=== PATIENT | female | born 1975 | race Caucasian/White ===

== ENCOUNTER 2023-02-03 17:58 | Emergency (ER) | payer OTHER, MEDICARE, SELFPAY ==
[2023-02-03 18:04] VITALS: BP 159/92; PULSE 101; RESP 20; TEMP 36.9; O2SAT 99; BMI 30.9
--- NOTE | 2023-02-03 18:42 | ED_ITS ---
HPI - General Adult General Time Seen by Provider: 18:43 Date Seen: 02/03/23 Chief complaint: Unspecified Complaint, Adult Stated complaint: MS/Rheumatoid arthritis flare up Time Seen by Provider: 02/03/23 18:35 Source: patient Mode of arrival: ambulatory Limitations: no limitations History of Present Illness HPI narrative: Kaylee is a 47-year-old female with rheumatoid arthritis, multiple sclerosis, migraines, obesity presents emerged department via private car and self with a rheumatoid arthritis flare. Patient used to be on rituximab for her MS and RA but due to her recent move from [place] to [place] she has not been taking this medication. She was also admitted recently at [facility] for sore blurry vision of the left eye, right leg paresthesias, neurology thought more related to pseudo flares with her MS an RA. No evidence of optic neuritis. MRI orbit did not show enhancement of the optic nerve. MRI brain did not show enhancement to suggest active demyelination intracranial especially infratentorial locations. MRI negative for any aneurysm or vascular malformation to explain her mydriasis. No evidence of acute angle glaucoma with IOP. Due to her right lower paresthesias, MR lumbar and thoracic spine was obtained she was not a surgical candidate after evaluated by [facility]. This was thought to be related to acute on chronic right leg weakness. She was given IV methyl prednisolone 1 g for 5 days. She was then discharged home. Patient was just seen on 01/23 at the [facility] for a migraine and left eye pupil enlargement. CTA head and neck were negative, labs reassuring she was treated as a migraine exacerbation. She is currently finished a Medrol Dosepak. Over the last few days she has had increased right lower extremity muscle spasms and pain, this is usually what occurs when she has a pseudo flare, she feels it is affecting her left side, she also gets burning in the skin of her upper lower extremities, like it is crawling. She denies any migraine at this time, she does get some intermittent blurry vision of that left eye which is not new, she has had a dilated left pupil with these flare ups. She has had some upper neck pain, bilateral paraspinal musculature that radiates to the left side of her head, no recent injury. She denies any chest pain or shortness of breath, no abdominal pain, she has not had any nausea or vomiting. Patient is able to ambulate, she denies any urinary bowel incontinence or retention, she denies any lower back pain. She is scheduled to see Neurology and [facility] mid February, she has just established care with a nurse practitioner Pavel Coats. Related Data Home Medications Medication Instructions Recorded Confirmed bupropion HCl PO 02/03/23 hydrochlorothiazide 25 mg tablet 25 mg PO DAILY 02/03/23 02/03/23 losartan 100 mg tablet (Cozaar) 100 mg PO DAILY 02/03/23 02/03/23 ondansetron HCl 4 mg tablet 4 mg feeding tube Q8-12H PRN 02/03/23 02/03/23 sertraline 02/03/23 Previous Rx's Medication Instructions Recorded Methylprednisone 1,000 mg PO .q24 5 days #5 caps 02/03/23 Allergies Allergy/AdvReac Type Severity Reaction Status Date / Time codeine Allergy Mild Verified 02/03/23 18:12 metoclopramide [From Reglan] Allergy Mild Anxiety Verified 02/03/23 18:12 penicilln Allergy Mild Abdominal Uncoded 02/03/23 18:12 Pain Review of Systems Status of ROS: Reports: 10 or more systems reviewed and unremarkable except as noted in History and below [facility] Social History Smoking Status: Never smoker Do you use any of these nicotine containing products: None Second hand tobacco smoke exposure: No How often do you have a drink containing alcohol: never AUDIT-C Alcohol total score: 0 Non-prescribed substance use: denies use service: No Exam Narrative: Exam Narrative: General: Patient is anxious, toxic in appearance. HEENT: Tympanic membranes within normal limits bilaterally, Left myadriasis present, no pupillary response, right pupils equal round reactive to light, oropharynx is clear and moist. Extraocular muscles intact. Neck: supple, FROM, tender to palpation the upper cervical paraspinal musculature. Lungs: Clear to auscultation bilaterally Heart: Sinus tachycardia Abdomen: Soft nontender, bowel sounds present Muscle skeletal: +5 strength upper extremities, no weakness. Right lower extremity a shaking, active extension and flexion right hip and knee, CMS intact. Left lower extremity: Active extension and flexion, able to lift above bed. Nontender palpation lower lumbar spine Neuro: She is alert awake and oriented x3, cranial nerves 2-12 grossly intact. Const: Vital Signs, click to edit/add: Vital Signs - 24 hr 02/03/23 18:04 02/03/23 19:32 02/03/23 21:18 Temperature 98.5 F 98.5 F Pulse Rate [Pulse Oximeter] 101 H Respiratory Rate 20 Blood Pressure [Ri ght Upper Arm] 159/92 H Pulse Oximetry 99 97 Oxygen Delivery Me thod Room Air Course Course ED Course: 6:45 AM: AIDET performed. vitals show mild tachycardia, workup will include IV peripheral, 0.9 normal saline bolus, 50 mg IV Benadryl, 15 mg IV Toradol and 10 mg IV Decadron, 5 mg IV Valium for muscle spasms, will obtain CBC, CRP, ESR, CMP, will treat as a MS flare, patient was recently seen on 01/23 when she had a CTA head neck, CT head without contrast stroke protocol. Will reach out to [facility]. I do not feel this an acute CVA, head trauma, meningitis, patient denies any headache, eye pain at this time making glaucoma less likely, most likely a MS flare like she has had in the past, did discuss with her her recent visit to the emergency department where she had reassuring CTA head and neck and CT head without contrast stroke protocol as well as reassuring labs. Patient has had recently MR imaging as well and her recent hospitalization at [place]. Plan to treat symptomatically. Reevaluation(s) Reevaluation #1: 8:30 PM: labs were reassuring. Blood pressure improved during her stay. Spoke with [facility] Dr. Miriam DAVIS, recommendations were to treat with dose methylprednisolone 1000 mg daily over the next 5 days. No further imaging to be obtained at this time. Patient still having pain, Patient has tolerated Morphine in the past for pain, she did not like Droperidol or Haldol. Reevaluation #2: Due to shift change transfer of care was given to Dr. De León pending response to pain medications and likely discharge home, instructions were given to the patient, she does have Rheumatology and Neurology follow-up arranged next month. Vital Signs Vital signs: Initial Vital Signs Temperature 98.5 F 02/03/23 18:04 Temperature Source Temporal Artery Scan 02/03/23 18:04 Pulse Rate 101 H 02/03/23 18:04 Pulse Rhythm Regular 02/03/23 18:04 Respiratory Rate 20 02/03/23 18:04 Blood Pressure 159/92 H 02/03/23 18:04 Blood Pressure Mean 114 H 02/03/23 18:04 Blood Pressure Position Sitting 02/03/23 18:04 Pulse Oximetry 99 02/03/23 18:04 Oxygen Delivery Method Room Air 02/03/23 18:04 Vital Signs Temperature 98.5 F 02/03/23 18:04 Pulse Rate 101 H 02/03/23 18:04 Respiratory Rate 20 02/03/23 18:04 Blood Pressure 159/92 H 02/03/23 18:04 Pulse Oximetry 99 02/03/23 18:04 Oxygen Delivery Method Room Air 02/03/23 18:04 Temperature 98.5 F 02/03/23 19:32 Pulse Rate 101 H 02/03/23 18:04 Respiratory Rate 20 02/03/23 18:04 Blood Pressure 159/92 H 02/03/23 18:04 Pulse Oximetry 97 02/03/23 21:18 Oxygen Delivery Method Room Air 02/03/23 18:04 Medications Administered Medications: Discontinued Medications Generic Name Dose Route Start Last Admin Trade Name Puma PRN Reason Stop Dose Admin Dexamethasone 10 mg 02/03/23 19:19 02/03/23 19:30 Dexamethasone 4 Mg/Ml Vial IV 02/03/23 19:20 10 mg ONCE ONE Administration Diazepam 5 mg 02/03/23 20:34 02/03/23 20:45 Diazepam 5 Mg/Ml Inj IV 02/03/23 20:35 5 mg ONCE ONE Administration Diphenhydramine HCl 50 mg 02/03/23 19:18 02/03/23 19:34 Diphenhydramine 50 Mg/Ml Inj IVP 02/03/23 19:19 50 mg ONCE ONE Administration Heparin Sodium (Porcine) 500 unit 02/03/23 21:45 02/03/23 22:00 Heparin 500 Unit/5 Ml Syringe IVF 02/03/23 21:46 500 unit ONCE ONE Administration Sodium Chloride 1,000 mls @ 1,000 mls/hr 02/03/23 19:18 02/03/23 20:38 0.9 % Sodium Chloride 1000 Ml IV 02/03/23 20:17 Infused .Q1H SHENA Infusion Ketorolac Tromethamine 15 mg 02/03/23 19:18 02/03/23 19:32 Ketorolac 15 Mg/Ml Inj IVP 02/03/23 19:19 15 mg ONCE ONE Administration Morphine Sulfate 4 mg 02/03/23 21:17 02/03/23 21:37 Morphine 4 Mg/Ml Inj IVP 02/03/23 21:18 4 mg ONCE ONE Administration Ondansetron HCl 4 mg 02/03/23 20:34 02/03/23 20:47 Ondansetron 2 Mg/Ml Inj IVP 02/03/23 20:35 4 mg ONCE ONE Administration Potassium Chloride 40 meq 02/03/23 20:52 02/03/23 21:03 Potassium Chloride 10 Meq Capsule Er PO 02/03/23 20:53 40 meq ONCE ONE Administration Medical Decision Making Lab Data Labs: Lab Results 02/03/23 02/03/23 02/03/23 Range/Units 19:18 19:18 19:35 WBC 9.49 (4.50-11.00) K/uL RBC 4.57 (4.00-5.20) m/uL Hgb 12.4 (12.0-16.0) gm/dL Hct 38.3 (33.0-51.0) % MCV 84 (80-100) fL MCH 27 (26-34) pg MCHC 32 (32-36) gm/dL RDW Coeff of Joanna 14.2 (11.5-15.5) % Plt Count 304 (140-440) K/uL Neut % (Auto) 73.5 H (42.0-72.0) % Lymph % (Auto) 14.8 L (20-44) % Mcdonald % (Auto) 8.4 (0.0-11.0) % Eos % (Auto) 2.3 (0.0-7.0) % Baso % (Auto) 0.7 (0.0-3.0) % Neut # (Auto) 7.00 (1.7-7.0) K/uL Lymph # (Auto) 1.40 (0.90-2.90) K/uL Mcdonald # (Auto) 0.80 (0.00-0.90) K/UL Eos # (Auto) 0.22 (0.00-0.50) K/uL Baso # (Auto) 0.07 (0.00-0.30) K/uL Abs Immat Gran (auto) 0.03 (0.00-0.30) K/uL Imm/Tot Granulo (auto) 0.3 % ESR 5 (2-20) mm/hr Sodium 139 (135-149) mmol/L Potassium 3.0 L (3.6-5.1) mmol/L Chloride 104 (96-114) mmol/L Carbon Dioxide 28 (20-32) mmol/L Anion Gap 7 (7-15) mEq/L BUN 13 (5-24) mg/dL Creatinine 0.7 (0.5-1.5) mg/dL Estimated Creat Clear 83.95 Estimated GFR 106 ml/min Glucose 103 (60-115) mg/dL Calcium 9.0 (8.4-10.6) mg/dL Magnesium 2.3 Cancelled (1.5-2.6) mg/dL Total Bilirubin 0.1 (0.1-1.5) mg/dL AST 22 (12-35) U/L ALT 19 (4-35) U/L Alkaline Phosphatase 74 (40-150) U/L C-Reactive Protein 0.6 (0.5-1.0) mg/dL Total Protein 6.1 (6.0-8.3) g/dL Albumin 4.0 (3.3-5.0) g/dL Discharge Plan Discharge Clinical Impression: Mydriasis, Muscle spasm of right lower extremity, Multiple sclerosis, Neck pain Patient Disposition: Home, Self-Care Condition: Stable Instructions: Muscle Spasm (ED), Neck Pain (ED) Additional Instructions: To take methylprednisolone 1000 mg once daily over the next 5 days, continue with Zofran 4 mg ODT every 8 hours as needed at home, follow-up as scheduled with primary care provider, Rheumatology and Neurology, reasons to return were given. Activity Level: Activity as Tolerated Prescriptions: New Methylprednisone 1,000 mg PO .q24 5 Days Qty: 5 0RF No Action losartan [Cozaar] 100 mg tablet 100 mg PO DAILY hydrochlorothiazide 25 mg tablet 25 mg PO DAILY sertraline Rx Instructions: 75mg daily bupropion HCl [Wellbutrin] PO Rx Instructions: 300mg daily ondansetron HCl 4 mg tablet 4 mg feeding tube Q8-12H PRN Follow Up/Referrals: Provider,Not a Local [Primary Care Provider] - Stand Alone Forms: Black cointh Info Instructions
[2023-02-03] MEDS: dexAMETHasone 4 MG/ML VIAL 10 MG IV (19:30)
[2023-02-03] MEDS: 0.9 % SODIUM CHLORIDE 1000 ml 1,000 ML IV (19:30)
[2023-02-03 19:32] VITALS: TEMP 36.9
[2023-02-03] MEDS: KETOROLAC 15 MG/ML inj IVP (19:32)
[2023-02-03] MEDS: diphenhydrAMINE 50 MG/ML inj IVP (19:34)
[2023-02-03 19:57] LABS: Basophils Absolute Auto 0.07 K/uL (0.00-0.30); Basophils Percent Auto 0.7 % (0.0-3.0); Eosinophils Absolute Auto 0.22 K/uL (0.00-0.50); Eosinophils Percent Auto 2.3 % (0.0-7.0); Hematocrit 38.3 % (33.0-51.0); Hemoglobin* 12.4 gm/dL (12.0-16.0); Immature Granulocytes Abs Auto 0.03 K/uL (0.00-0.30); Immature Granulocytes Pct Auto 0.3 %; Lymphocytes Percent Auto 14.8 % (20-44); Mean Corpuscular HGB Conc 32 gm/dL (32-36); Mean Corpuscular Hemoglobin 27 pg (26-34); Mean Corpuscular Volume 84 fL (80-100); Monocytes Percent Auto 8.4 % (0.0-11.0); Neutrophils Percent Auto 73.5 % (42.0-72.0); Platelet Count* 304 K/uL (140-440); RDW Coefficient of Variation % 14.2 % (11.5-15.5); Red Blood Count 4.57 m/uL (4.00-5.20); White Blood Count* 9.49 K/uL (4.50-11.00)
[2023-02-03 19:58] LABS: Slide Review Reflex No
[2023-02-03 20:01] LABS: Chloride* 104 mmol/L (96-114); Sodium* 139 mmol/L (135-149)
[2023-02-03 20:03] LABS: Creatinine* 0.7 mg/dL (0.5-1.5); Est. Creatinine Clearance* 83.95; Estimated Glomerular Filt Rate 106 ml/min
[2023-02-03 20:04] LABS: Alanine Aminotransferase* 19 U/L (4-35); Alkaline Phosphatase* 74 U/L (40-150); Anion Gap 7 mEq/L (7-15); Aspartate Amino Transferase* 22 U/L (12-35); Bilirubin Total* 0.1 mg/dL (0.1-1.5); Blood Urea Nitrogen* 13 mg/dL (5-24); Carbon Dioxide* 28 mmol/L (20-32); Total Protein* 6.1 g/dL (6.0-8.3)
[2023-02-03 20:05] LABS: Glucose* 103 mg/dL (60-115); Magnesium* 2.3 mg/dL (1.5-2.6)
[2023-02-03 20:07] LABS: C Reactive Protein* 0.6 mg/dL (0.5-1.0)
[2023-02-03] MEDS: diazePAM 5 MG/ML inj IV (20:45)
[2023-02-03] MEDS: ONDANSETRON 2 MG/ML inj 4 MG IVP (20:47)
[2023-02-03] MEDS: POTASSIUM CHLORIDE 10 MEQ CAPSULE ER 40 MEQ PO (21:03)
[2023-02-03 21:18] VITALS: O2SAT 97
[2023-02-03] MEDS: MORPHINE 4 MG/ML INJ IVP (21:37)
[2023-02-03 21:45] LABS: Erythrocyte SedimentationRate* 5 mm/hr (2-20)
[2023-02-03] MEDS: HEPARIN 500 UNIT/5 ML SYRINGE IVF (22:00)
== END 2023-02-03 22:10 | disposition home or self-care (01) ==
PROVIDERS: Emergency Provider Student in an Organized Health Care Education/Training Program
DX: G35 Multiple sclerosis (principal); M54.2 Cervicalgia; H57.04 Mydriasis
CPT/HCPCS: 36415; 80053; 83735; 85025; 85651; 86140; 94761; 96374; 96375; 99283; 99284; A9270; J1100; J1200; J1642; J1885; J2270; J2405; J3360; J7030

== ENCOUNTER 2024-09-04 12:14 | Outpatient (CLI) | payer BC, OTHER, MEDICARE, SELFPAY | END 2024-09-04 12:15 | disposition home or self-care (01) | LOC: NFLDUCREF 12:15 | PROVIDERS: Visit Provider Physician Assistant | DX: R33.9 Retention of urine, unspecified (principal) | CPT/HCPCS: 87086 ==